=== PATIENT | male | born 1950 | race Caucasian/White ===

== ENCOUNTER 2024-06-21 10:02 | Emergency (ER) | payer OTHER, MEDICARE ==
[~2024-06-21] VITALS: Ht 188 cm; Wt 81.8 kg
[2024-06-21 10:11] VITALS: TEMP 97.2
[2024-06-21 10:46] LABS: BASOPHILS % (AUTO) 0.4 % (0-1); EOSINOPHILS % (AUTO) 0.2 % (0-6); HEMATOCRIT 42.6 % (42.0-52.0); HEMOGLOBIN 14.9 g/dl (14.0-17.9); LYMPHOCYTES # (AUTO) 0.7 X10'3 (1.1-4.8); LYMPHOCYTES % (AUTO) 10.1 % (21-51); MEAN CORPUSCULAR HEMOGLOBIN 33.6 PG (27.0-31.0); MEAN CORPUSCULAR VOLUME 96.1 FL (78-98); MEAN PLATELET VOLUME 7.7 FL (7.4-10.4); MONOCYTES # (AUTO) 0.5 X10'3 (0-0.9); MONOCYTES % (AUTO) 6.8 % (2-12); NEUTROPHILS # (AUTO) 5.9 X10'3 (1.8-7.7); NEUTROPHILS % (AUTO) 82.5 % (42-75); PLATELET COUNT 155 X10'3 (140-440); RED BLOOD COUNT 4.43 X10'6 (4.70-6.10); RED CELL DISTRIBUTION WIDTH 13.7 % (11.5-14.5); WHITE BLOOD COUNT 7.2 X10'3 (4.5-11.0)
[2024-06-21 10:55] LABS: ALANINE AMINOTRANSFERASE 12 U/L (12-78); ALBUMIN 3.2 G/DL (3.4-5.0); ALBUMIN/GLOBULIN RATIO 0.7 (1.1-1.5); ALKALINE PHOSPHATASE 99 IU/L (46-116); ANION GAP 11 (8-16); ASPARTATE AMINO TRANSFERASE 16 U/L (10-37); BILIRUBIN,TOTAL 0.8 MG/DL (0.1-1.0); BLOOD UREA NITROGEN 15 MG/DL (7-18); BUN/CREATININE RATIO 16.1 (10.0-20.0); CALCIUM 9.2 MG/DL (8.5-10.1); CHLORIDE 101 MMOL/L (99-107); CREATININE 0.93 MG/DL (0.60-1.10); GLUCOSE 151 MG/DL (70-104); SODIUM 134 MMOL/L (135-145); TOTAL CARBON DIOXIDE 21.7 MMOL/L (24-32); eCRCL 82 ML/MIN; eGFR 80 ML/MIN
[2024-06-21 11:03] LABS: LIPASE 27 U/L (16-77); PRO BRAIN NATRIURETIC PEPTIDE 291 PG/ML (0-125)
[2024-06-21] MEDS: ketorolac trometh 15mg/ml vial 15 MG/ML ML IM ONE (14:56)
[2024-06-21] MEDS: ondansetron/PF 4mg/2ml inj IV ONE (14:56)
[2024-06-21] MEDS: normal saline 1000ML IV soln IVB ONE (14:56)
[2024-06-21] MEDS: haloperidol lactate 5mg/ml inj IM ONE (16:10)
[2024-06-21] MEDS ORDERED: CAPS60CR6 TOP (17:24)
[2024-06-21 17:32] VITALS: BP 108/87; PULSE 60; RESP 18; O2SAT 98
== END 2024-06-21 19:20 | disposition home or self-care (01) ==
LOC: ER 10:04
DX: R11.10 Vomiting, unspecified (principal); R10.31 Right lower quadrant pain; R19.7 Diarrhea, unspecified; Z88.8 Allergy status to other drugs, medicaments and biological substances
CPT/HCPCS: 36415; 71045; 80053; 83690; 83880; 84484; 85025; 93005; 96361; 96372; 96374; 99285; J1630; J1885; J2405; J7030